=== PATIENT | female | born 1945 | race Caucasian/White ===

== ENCOUNTER → 2018-02-04 | Outpatient (CLI) | payer OTHER ==
[~2018-02-04] MED LIST: ASPI-555 PO; INTE0.3K2 SQ; LACT1CAP78 PO; LOSA1TAB37 PO; PRAV40TA3 PO; SOLI10TA PO
== END | disposition home or self-care (01) ==
LOC: OIH 15:25
PROVIDERS: ATTEND Neurological Surgery
DX: M47.892 Other spondylosis, cervical region (principal); M43.22 Fusion of spine, cervical region
CPT/HCPCS: 72040

== ENCOUNTER → 2018-12-31 | Outpatient (CLI) | payer OTHER | END | disposition home or self-care (01) | LOC: RAH 10:55 | PROVIDERS: ATTEND Physical Medicine & Rehabilitation | DX: M54.12 Radiculopathy, cervical region (principal); G95.89 Other specified diseases of spinal cord; M43.22 Fusion of spine, cervical region; G31.9 Degenerative disease of nervous system, unspecified | CPT/HCPCS: 70551; 72141 ==

== ENCOUNTER → 2020-02-15 | Outpatient (CLI) | payer OTHER | END | disposition home or self-care (01) | LOC: RAH 10:51 | PROVIDERS: ATTEND Family Medicine | DX: R90.82 White matter disease, unspecified (principal) | CPT/HCPCS: 70450 ==